=== PATIENT | female | born 1945 | race Caucasian/White ===

== ENCOUNTER 2020-05-04 13:25 | Inpatient (IN) | payer OTHER, SELFPAY ==
[~2020-05-04] VITALS: Ht 152.4 cm; Wt 54.0 kg
[2020-05-04 13:25] VITALS: BP_SYST 128
--- NOTE | 2020-05-04 13:25 | NUR ---
Patient to ER bed 01 to gown for evaluation. Side rails up. Report given to PINO CLARKE.
--- NOTE | 2020-05-04 13:35 | NUR ---
Radiology at bed side for CXR
--- NOTE | 2020-05-04 13:40 | NUR ---
unsuccessful IV placement x2 by [address] Ortega made aware.
--- NOTE | 2020-05-04 13:45 | NUR ---
Patient arrived in the ED ALOC. PT BIB BLS from home; per EMS pt hypotensive and altered. Skin pale and dry, pt placed on phototypesetting equipment monitor and pulse-ox monitor. will continue to monitor
--- NOTE | 2020-05-04 13:50 | NUR ---
ER Dr. Ortega at bedside examining patient.
[2020-05-04 15:04] LABS: BASOPHILS # (AUTO) 0.2 K/uL (0.0-0.2); BASOPHILS % (AUTO) 0.7 % (0.0-2.0); HEMATOCRIT 43.5 % (36-48); HEMOGLOBIN 14.5 g/dL (12.0-16.0); LYMPHOCYTES # (AUTO) 5.9 K/uL (1.0-5.5); MEAN CORPUSCULAR HEMOGLOBIN 30 pg (27-31); MEAN CORPUSCULAR HGB CONC 33 % (32-36); MEAN CORPUSCULAR VOLUME 89 fL (79.0-98.0); MONOCYTES % (AUTO) 4.6 % (1.7-9.3); NEUTROPHILS # (AUTO) 14.7 K/uL (1.8-7.7); NEUTROPHILS % (AUTO) 67.7 % (40.0-70.0); PLATELET COUNT (AUTO) 417 K/uL (130-430); RED BLOOD CELL COUNT(AUTO) 4.89 MIL/uL (4.2-6.2); RED CELL DISTRIBUTION WIDTH 15.6 % (9.0-15.0); WHITE BLOOD COUNT (AUTO) 21.8 K/uL (4.8-10.8)
[2020-05-04 15:05] LABS: ANION GAP 18 (5-15); CALCIUM 10.3 mg/dL (8.4-11.0); CHLORIDE 102 mmol/L (98-107); CREATININE 3.03 mg/dL (0.55-1.30); GLUCOSE 77 mg/dL (70-99); POTASSIUM 3.3 mmol/L (3.5-5.1); SODIUM SERUM 140 mmol/L (136-145); UREA NITROGEN, BLOOD 23 mg/dL (8-21)
[2020-05-04] MEDS ORDERED: HYD10 PO (15:13)
[2020-05-04] MEDS ORDERED: IRBE150T48 PO (15:13)
[2020-05-04] MEDS ORDERED: SYN75 PO (15:13)
[2020-05-04] MEDS ORDERED: HYDR20TA PO (15:13)
[2020-05-04] MEDS ORDERED: ATOR-1 PO (15:13)
--- NOTE | 2020-05-04 15:13 | NUR ---
MMedication reconciliation completed with information provided by PATIENT BOTTLES. Any prior medication reconciliation on file was reviewed and corrected.
[2020-05-04 15:21] LABS: ALANINE AMINOTRANSFERASE 23 U/L (12-78); ALBUMIN 3.5 g/dL (3.4-4.8); ASPARTATE AMINOTRANSFERASE 35 U/L (10-37)
[2020-05-04] MEDS ORDERED: LORazepam 2 MG/ML VIAL IVP ONE ×2 (15:30→17:45)
--- NOTE | 2020-05-04 15:30 | NUR ---
Lab at bedside for blood cultures
[2020-05-04 15:35] LABS: INR 1.3 (0.8-1.2); PROTHROMBIN TIME 13.7 SECS (9.5-12.5)
[2020-05-04] MEDS ORDERED: NACL 0.9% 1,000 ML IV ONE ×2 (15:45→18:45)
[2020-05-04] MEDS ORDERED: cefTRIAXone 1 GM IVPB PREMIX 50 ML IV ONE (15:45)
--- NOTE | 2020-05-04 15:45 | NUR ---
Belongings list completed.
--- NOTE | 2020-05-04 17:35 | NUR ---
# 16 FR Pleitez catheter with use of sterile technique. Immediate return of 10 cc pale yellow urine noted. Bedside drainage bag placed below level of bladder. Urine sample collected and sent to lab. Pt tolerated procedure well.
--- NOTE | 2020-05-04 18:07 | NUR ---
Patient transported to radiology via gurney for CT, accompanied by staff.
[2020-05-04] MEDS ORDERED: LEVOFLOXACIN 500 MG/D5W 100 ML IV ONE (18:30)
--- NOTE | 2020-05-04 18:54 | NUR ---
Unable to obtain urine via straight cath. MD ordered mackey placement, pt tolerated well. No urine return noted. Irrigated with NS, without urine return. Bladder scanner used to check urine amount, reads 0ML in multiple locations. MD to order alternate scan.
[2020-05-04] MEDS ORDERED: ENOXAPARIN SODIUM 30 MG/0.3 ML SYRINGE SUBCUT ONE (19:00)
--- NOTE | 2020-05-04 19:18 | NUR ---
Admit orders received from Dr. Rush, pt will be admitted to Tele under Dr. Ivey.
--- NOTE | 2020-05-04 19:24 | NUR ---
Care of patient endorsed to PINO Mar. Pt currently resting in bed, no distress noted.
[2020-05-04] MEDS ORDERED: 0.45% NACL 1,000 ML IV SCH (19:26)
--- NOTE | 2020-05-04 20:14 | NUR ---
CALLED PATIENT'S , RUBINA, TO DISCUSS CODE STATUS. STATES PATIENT IS FULL CODE. CODE STATUS FORM PLACED IN CHART.
--- NOTE | 2020-05-04 20:16 | NUR ---
Patient will be admitted to care of DR. TAYLOR. Admitted to TELEMETRY unit. Will go to room 104B. Belongings list completed. Complete and up to date summary report printed. SBAR report to be given at bedside with opportunity for questions.
--- NOTE | 2020-05-04 20:26 | NUR ---
ADMISSION NOTE Received patient from ER via gurney. Patient admitted with diagnosis of sepsis and renal failure. Patient is awake, alert, oriented X 2. Patient oriented to hospital room, call light, toileting, pain management and safety-teach back done. Patient informed that zaki will be nurse and that their room number is 104B. Personal belongings checked and Belongings List documented. Call light within reach.
[2020-05-04 20:43] VITALS: BP_SYST 134
--- NOTE | 2020-05-04 20:44 | NUR ---
CONSULTATION PAGED/CALLED Reason for Consultation: SEPSIS Person Who was Notified: DIRECTOR REGULATORY COMPLIANCE Consulting Physician: SHRUTHI Dental Equipment Technician Specialty: ID Ordering Physician: Kimberly TAYLOR
--- NOTE | 2020-05-04 20:51 | NUR ---
CONSULTATION PAGED/CALLED Reason for Consultation: ELEVATED CREATININE Person Who was Notified: CAIN Consulting Physician: ARNOLD. DOCTOR TONI IS AGENCY DEVELOPMENT MANAGER [place] Specialty: Ordering Physician: Kimberly TAYLOR
--- NOTE | 2020-05-04 21:00 | NUR ---
SPOKE TO DR. MUÑOZ UPDATED TO DR. MUÑOZ REGARDING PT STATUS, NOTIFIED BUN 23, CREATININE 3.03. DR. MUÑOZ AWARE.
--- NOTE | 2020-05-04 21:20 | NUR ---
OPENING NOTE/ LOOSE WATERY STOOL PATIENT AOX1 AND LETHARGIC. NO SIGNS OF RESPIRATORY DISTRESS AND DISCOMFORT NOTED. BREATHING EVEN AND UNLABORED. ON ROOM AIR TOLERATING WELL. SANCHEZ CATHETER, 30ML OF URINE NOTED. DR. MUÑOZ AWARE. WATERY BOWEL MOVEMENT IS NOTED. IVF INFUSING WELL. BED LOCKED AND IN LOWEST POSITION. SAFETY PRECAUTIONS IN PLACE. WILL CONTINUE TO MONITOR PATIENT.
--- NOTE | 2020-05-04 23:45 | NUR ---
RN ROUNDS/ SYLVIA CARE SYLVIA CARE DONE WITH HELP OF CLIENT CARE COORDINATOR, PATIENT ABLE TO FOLLOW ON SIMPLE COMMANDS. PATIENT HAS NO SIGNS OF RESPIRATORY DISTRESS NOTED. BREATHING EVEN AND UNLABORED. ON ROOM AIR, TOLERATING WELL. IVF INFUSING WELL. SANCHEZ MINIMAL DRAIN WAS NOTED. BED LOCKED AND IN LOWEST POSITION. SAFETY PRECAUTIONS IN PLACE. WILL CONTINUE TO MONITOR PATIENT
[2020-05-05 00:11] VITALS: BP_SYST 131
[2020-05-05] MEDS ORDERED: cefTRIAXone 1 GM IVPB PREMIX 50 ML IV SCH (00:15)
[2020-05-05] MEDS ORDERED: LORazepam 2 MG/ML VIAL IVP PRN (00:15)
[2020-05-05] MEDS ORDERED: ONDANSETRON HCL 4 MG/2 ML VIAL IVP PRN (00:15)
[2020-05-05] MEDS ORDERED: HYDROcodone/ACETAMIN 10-325 MG TAB PO PRN (00:15)
[2020-05-05] MEDS ORDERED: HYDROcodone/ACETAMIN 5-325 MG TAB (NORCO/ VICODIN) PO PRN (00:15)
[2020-05-05] MEDS ORDERED: ACETAMINOPHEN 325 MG TABLET PO PRN (00:15)
[2020-05-05] MEDS ORDERED: NALOXONE HCL 0.4 MG/ML AMP (NARCAN) IVP PRN ×2 (00:15)
[2020-05-05 00:38] LABS: BILIRUBIN,URINE NEGATIVE (NEGATIVE); BLOOD, URINE 3+ (NEGATIVE); COLOR,URINE YELLOW (YELLOW); GLUCOSE,URINE NEGATIVE (NEGATIVE); KETONES,URINE NEGATIVE (NEGATIVE); LEUKOCYTE ESTERASE ,URINE 3+ (NEGATIVE); NITRITE, URINE NEGATIVE (NEGATIVE); PROTEIN URINE 2+ (NEGATIVE); UROBILINOGEN,URINE 0.2 (0.2-1.0)
[2020-05-05 00:41] LABS: CLARITY/URINE HAZY (CLEAR)
[2020-05-05] MEDS: D5/0.45 NS 1,000 ML IV SCH ×3 (00:51→22:07)
[2020-05-05 00:56] LABS: BACTERIA,URINE MANY /HPF (None Seen); RBC,URINE 20-50 /HPF (0-3); WBC,URINE 20-50 /HPF (0-3)
[2020-05-05 00:57] LABS: URINE AMORPHOUS URATE 2+ /HPF (None Seen)
--- NOTE | 2020-05-05 02:27 | NUR ---
RN ROUNDS PATIENT ASLEEP AT THIS TIME. NO SIGNS OF RESPIRATORY DISTRESS AND DISCOMFORT NOTED. BREATHING EVEN AND UNLABORED. IVF INFUSING WELL. SANCHEZ CATHETER, MINIMAL DRAIN WAS NOTED. CALL LIGHT WITHIN REACH. SAFETY PRECAUTIONS IN PLACE. WILL CONTINUE TO MONITOR PATIENT
[2020-05-05 06:13] LABS: BASOPHILS # (AUTO) 0.1 K/uL (0.0-0.2); BASOPHILS % (AUTO) 0.4 % (0.0-2.0); EOSINOPHILS # (AUTO) 0.2 K/uL (0.0-0.4); EOSINOPHILS % (AUTO) 1.3 % (0.0-4.0); HEMATOCRIT 35.2 % (36-48); HEMOGLOBIN 11.8 g/dL (12.0-16.0); LYMPHOCYTES # (AUTO) 2.3 K/uL (1.0-5.5); LYMPHOCYTES % (AUTO) 16.6 % (20.5-51.5); MEAN CORPUSCULAR HEMOGLOBIN 30 pg (27-31); MEAN CORPUSCULAR HGB CONC 33 % (32-36); MEAN CORPUSCULAR VOLUME 90 fL (79.0-98.0); NEUTROPHILS # (AUTO) 10.2 K/uL (1.8-7.7); NEUTROPHILS % (AUTO) 74.7 % (40.0-70.0); PLATELET COUNT (AUTO) 321 K/uL (130-430); RED BLOOD CELL COUNT(AUTO) 3.89 MIL/uL (4.2-6.2); RED CELL DISTRIBUTION WIDTH 15.9 % (9.0-15.0); WHITE BLOOD COUNT (AUTO) 13.7 K/uL (4.8-10.8)
[2020-05-05] MEDS: LEVOTHYROXINE SODIUM 0.075 MG TABLET PO SCH (06:14)
[2020-05-05 06:20] LABS: ANION GAP 12 (5-15); CALCIUM 7.9 mg/dL (8.4-11.0); CHLORIDE 109 mmol/L (98-107); CREATININE 2.85 mg/dL (0.55-1.30); GLUCOSE 120 mg/dL (70-99); PHOSPHORUS 4.4 mg/dL (2.7-4.5); POTASSIUM 3.7 mmol/L (3.5-5.1); SODIUM SERUM 140 mmol/L (136-145); UREA NITROGEN, BLOOD 25 mg/dL (8-21)
--- NOTE | 2020-05-05 06:39 | NUR ---
CLOSING NOTE PATIENT WAKES UP WHEN DUE MEDICATION SYNTHROID WAS GIVEN, ABLE TO FOLLOW ON SIMPLE COMMANDS. PATIENT WAS EDUCATED ON MEDICATION THAT WAS TAKEN FOR ITS PURPOSE, SIDE EFFECT AND BENEFITS. PATIENT ABLE TO VERBALIZED UNDERSTANDING. NO SIGNS FO RESPIRATORY DISTRESS AND DISCOMFORT NOTED. BREATHING EVEN AND UNLABORED. ON ROOM AIR, TOLERATING WELL. IVF INFUSING WELL. BED LOCKED AND IN LOWEST POSITION. SAFETY PRECAUTIONS IN PLACE. ALL NEEDS MET THROUGHOUT THE SHIFT. WILL CONTINUE TO MONITOR PATIENT UNTIL ENDORSE TO ONCOMING SHIFT NURSE FOR CONTINUITY OF CARE.
--- NOTE | 2020-05-05 07:10 | NUR ---
OPENING NOTE RECEIVED SBAR FROM NIGHT RN, PATIENT IN BED RESPIRATIONS EVEN, NON LABORED, BED IN LOW AND LOCKED POSITION, CALL LIGHT WITHIN REACH, BED ALARM ON
[2020-05-05 08:00] VITALS: BP_SYST 105
--- NOTE | 2020-05-05 08:00 | NUR ---
NURSE NOTE OBTAINED VS, PATIENT IN BED, RESPIRATIONS EVEN, NON LABORED, BED IN LOW AND LOCKED POSITION, CALL LIGHT WITHIN REACH, BED ALARM ON
--- NOTE | 2020-05-05 08:08 | NUR ---
Nutrition Update Reese scale 17 noted. Pt admitted for sepsis, renal failure Diet: Regular Diet BMI: 22.7 kg/m2 RD to follow per nutrition care standards.
[2020-05-05 08:25] LABS: C-REACTIVE PROTEIN QUANT 44.1 mg/dL (0-0.5)
[2020-05-05] MEDS: ATORVASTATIN 20 MG TABLET PO SCH (08:26)
[2020-05-05] MEDS: HYDROCORTISONE 10 MG TABLET (CORTEF) PO SCH ×2 (08:26→22:07)
[2020-05-05 08:46] LABS: ERYTHROCYTE SEDIMENTATION RATE 63 MM/HR (0-20)
[2020-05-05] MEDS: cefTRIAXone 1 GM IVPB PREMIX 50 ML IV SCH (09:14)
--- NOTE | 2020-05-05 10:00 | NUR ---
NURSE NOTE REPOSITIONED PATIENT, IN BED, RESPIRATIONS EVEN, NON LABORED, BED IN LOW AND LOCKED POSITION, CALL LIGHT WITHIN REACH, BED ALARM ON, PATIENT DENIES ANY PAIN OR DISCOMFORT
[2020-05-05 10:14] LABS: URINE SODIUM, RANDOM 18 mmol/L (40-220)
[2020-05-05 11:54] VITALS: BP_SYST 120
--- NOTE | 2020-05-05 12:00 | NUR ---
NURSE NOTE REPOSITIONED PATIENT, RESPIRATIONS EVEN, NON LABORED, BED IN LOW AND LOCKED POSITION, CALL LIGHT WITHIN REACH, BED ALARM ON
--- NOTE | 2020-05-05 14:00 | NUR ---
nurse note repositioned patient, mackey is not draining, bladder scan shows 20ml, of urine, mackey was out of patient. MACKEY CATH: # 16FR Mackey catheter with 12 cc bulb inserted with use of sterile technique. Bulb inflated with 12 cc sterile water. Bedside drainage bag placed below level of bladder. Pt tolerated procedure well.
[2020-05-05] MEDS: metroNIDAZOLE 250 mg/NS 50 ML IV SCH ×2 (14:56→22:08)
--- NOTE | 2020-05-05 16:00 | NUR ---
nurse note repositioned patient, bed in low and locked position, call light within reach, bed alarm on, patient denies any pain or discomfort,
[2020-05-05 16:12] VITALS: BP_SYST 124
--- NOTE | 2020-05-05 18:00 | NUR ---
nurse note repositioned patient, patient denies any pain or discomfort, bed in low and locked position, call light within reach, IVF's running as directed
--- NOTE | 2020-05-05 19:15 | NUR ---
closing note provided bedside SBAR to night RN, patient in bed, respirations even, non labored, bed in low and locked position, call light within reach, bed alarm on
--- NOTE | 2020-05-05 19:27 | NUR ---
OPENING NOTE PATIENT AOX1, FOLLOW ON SIMPLE COMMANDS. NO SIGNS OF RESPIRATORY DISTRESS AND DISCOMFORT NOTED. BREATHING EVEN AND UNLABORED. ON ROOM AIR TOLERATING WELL. SANCHEZ CATHETER, DRAINING WELL BY GRAVITY. IVF INFUSING WELL. BED LOCKED AND IN LOWEST POSITION. SAFETY PRECAUTIONS IN PLACE. WILL CONTINUE TO MONITOR PATIENT.
[2020-05-05 20:00] VITALS: BP_SYST 105
[2020-05-06] VITALS: BP_SYST 114
[2020-05-06] MEDS: D5/0.45 NS 1,000 ML IV SCH ×2 (05:27→13:18)
[2020-05-06] MEDS: metroNIDAZOLE 250 mg/NS 50 ML IV SCH ×2 (06:24→14:54)
[2020-05-06] MEDS: LEVOTHYROXINE SODIUM 0.075 MG TABLET PO SCH (06:24)
[2020-05-06 06:38] LABS: BASOPHILS % (AUTO) 0.2 % (0.0-2.0); EOSINOPHILS % (AUTO) 0.1 % (0.0-4.0); HEMATOCRIT 29.4 % (36-48); LYMPHOCYTES # (AUTO) 1.2 K/uL (1.0-5.5); LYMPHOCYTES % (AUTO) 10.9 % (20.5-51.5); MEAN CORPUSCULAR HEMOGLOBIN 30 pg (27-31); MEAN CORPUSCULAR HGB CONC 34 % (32-36); MEAN CORPUSCULAR VOLUME 89 fL (79.0-98.0); MONOCYTES # (AUTO) 0.3 K/uL (0.0-1.0); MONOCYTES % (AUTO) 3.2 % (1.7-9.3); NEUTROPHILS # (AUTO) 9.2 K/uL (1.8-7.7); NEUTROPHILS % (AUTO) 85.6 % (40.0-70.0); PLATELET COUNT (AUTO) 266 K/uL (130-430); RED CELL DISTRIBUTION WIDTH 15.8 % (9.0-15.0); WHITE BLOOD COUNT (AUTO) 10.8 K/uL (4.8-10.8)
[2020-05-06 06:52] LABS: ALANINE AMINOTRANSFERASE 18 U/L (12-78); ALBUMIN 2.1 g/dL (3.4-4.8); ANION GAP 12 (5-15); ASPARTATE AMINOTRANSFERASE 20 U/L (10-37); CALCIUM 7.7 mg/dL (8.4-11.0); CHLORIDE 109 mmol/L (98-107); CREATININE 1.79 mg/dL (0.55-1.30); GLUCOSE 166 mg/dL (70-99); PHOSPHORUS 2.5 mg/dL (2.7-4.5); POTASSIUM 3.4 mmol/L (3.5-5.1); SODIUM SERUM 140 mmol/L (136-145); TOTAL BILIRUBIN 0.7 mg/dL (0.0-1.0); UREA NITROGEN, BLOOD 22 mg/dL (8-21)
--- NOTE | 2020-05-06 07:15 | NUR ---
opening note received sbar from night rn, patient in bed, respirations even, non labored, bed in low and locked position, call light within reach, bed alarm on
--- NOTE | 2020-05-06 07:40 | NUR ---
ROUNDS DR LEVY BEDSIDE EXAMINING PATIENT
--- NOTE | 2020-05-06 07:41 | NUR ---
CLOSING NOTE/ DR. MICHELLE MARTINEZ ROUNDS AND UPDATED WITH PATIENT STATUS. PATIENT WAKES UP WHEN DUE MEDICATION SYNTHROID WAS GIVEN, ABLE TO FOLLOW ON SIMPLE COMMANDS. PATIENT WAS EDUCATED ON MEDICATION THAT WAS TAKEN FOR ITS PURPOSE, SIDE EFFECT AND BENEFITS. PATIENT ABLE TO VERBALIZED UNDERSTANDING. NO SIGNS FO RESPIRATORY DISTRESS AND DISCOMFORT NOTED. BREATHING EVEN AND UNLABORED. ON ROOM AIR, TOLERATING WELL. IVF INFUSING WELL. BED LOCKED AND IN LOWEST POSITION. SAFETY PRECAUTIONS IN PLACE. ALL NEEDS MET THROUGHOUT THE SHIFT. ENDORSE TO PINO HU FOR CONTINUITY OF CARE.
[2020-05-06] MEDS: HYDROCORTISONE 10 MG TABLET (CORTEF) PO SCH (08:15)
[2020-05-06] MEDS: ATORVASTATIN 20 MG TABLET PO SCH (08:15)
[2020-05-06] MEDS: cefTRIAXone 1 GM IVPB PREMIX 50 ML IV SCH (08:15)
--- NOTE | 2020-05-06 08:15 | NUR ---
nurse note obtained vs, provided medications, patient alert and oriented, x 3 respirations even, non labored, bed in low and locked position, call light within reach, bed alarm on, mackey draining by gravity, ivf's running as ordered. Patient denies any pain or discomfort
--- NOTE | 2020-05-06 10:00 | NUR ---
nurse note patient in bed, respirations even, non labored, bed in low and locked position call light within reach, bed alarm on, patient denies any pain or discomfort
--- NOTE | 2020-05-06 12:00 | NUR ---
nurse note patient in bed, respirations even non labored, denies any pain or discomfort
--- NOTE | 2020-05-06 12:15 | NUR ---
Dietitian Recommendations *Recommend continue Regular Diet *Recommend add Glucerna TID to provide additional 660 kcal, 30g protein to promote PO intake and for glycemic control *Recommend Banatrol TID to help w/ diarrhea. *Encourage increase PO intake during meal times. Please see Nutrition Assessment for details. TITUS TRIVEDI Addendum: 05/06/20 at [address] CORRECTION: Dietitian Recommendations *Recommend continue Regular Diet *Recommend add Glucerna TID to provide additional 660 kcal, 30g protein to promote PO intake and for glycemic control *Encourage increase PO intake during meal times. Please see Nutrition Assessment for details. TITUS TRIVEDI
[2020-05-06 12:32] VITALS: BP_SYST 128
--- NOTE | 2020-05-06 14:00 | NUR ---
nurse note patient in bed, respirations even, non labored bed in low and locked position
--- NOTE | 2020-05-06 15:00 | NUR ---
nurse note administered medication, assisted patient call family, bed in low and locked position, call light within reach
--- NOTE | 2020-05-06 17:00 | NUR ---
nurse note patient in bed, eyes closed, bed in low and locked position, call light within reach, no distress noted, bed alarm on
[2020-05-06 17:32] VITALS: BP_SYST 140
--- NOTE | 2020-05-06 18:35 | NUR ---
nurse note patient in bed, eating dinner, bed in low and locked position, call light within reach, bed alarm on
--- NOTE | 2020-05-06 19:18 | NUR ---
closing note provided sbar to night rn, patient in bed, respirations even, non labored, bed in low and locked position, call light within reach, mackey draining by gravity, ivf's running as ordered. endorsed care to night rn
[2020-05-07] MEDS: metroNIDAZOLE 250 mg/NS 50 ML IV SCH ×3 (06:27→22:16)
[2020-05-07] MEDS: D5/0.45 NS 1,000 ML IV SCH ×2 (06:27→12:31)
[2020-05-07] MEDS: LEVOTHYROXINE SODIUM 0.075 MG TABLET PO SCH (06:27)
--- NOTE | 2020-05-07 06:30 | NUR ---
pt.assessed.pt.presents quiescent affect;calm,resting.i have administered flagyl;abx;ivpb,0600a dose,synthroid;0700a dose,changed the iv fluids.no c/o pain,nausea.iv access intact;patent.mackey cath intact;patent urine content present. no c/o pain,nausea.pt.requested fresh water.i have provided the water.pt.assessed for cleanliness.pt.repositioned.call light/telephone placed w/in access of the pt.pt.presents renal failure.i have weighed the pt.
[2020-05-07 07:24] LABS: ANION GAP 10 (5-15); CALCIUM 7.7 mg/dL (8.4-11.0); CHLORIDE 112 mmol/L (98-107); GLUCOSE 102 mg/dL (70-99); POTASSIUM 3.1 mmol/L (3.5-5.1); SODIUM SERUM 143 mmol/L (136-145); UREA NITROGEN, BLOOD 15 mg/dL (8-21)
[2020-05-07 08:00] VITALS: BP_SYST 165
--- NOTE | 2020-05-07 08:00 | NUR ---
PATIENT AOX1, PLEASANT. NO S/S OF RESP DISTRESS, NO COMPLAINTS OF PAIN 0/10. PATIENT DID STATE THAT SHE DOES NOT EAT WELL HERE BECAUSE DOES NOT LIKE THE FOOD HERE BUT AT HOME EATS BETTER. PATIENT TOOK MORNING MEDS, ONE PILL AT A TIME. ALL NEEDS MET FOR NOW.
[2020-05-07] MEDS: HYDROCORTISONE 10 MG TABLET (CORTEF) PO SCH ×2 (08:46→20:15)
[2020-05-07] MEDS: ATORVASTATIN 20 MG TABLET PO SCH (08:48)
[2020-05-07] MEDS: cefTRIAXone 1 GM IVPB PREMIX 50 ML IV SCH (08:49)
[2020-05-07 09:10] VITALS: BP_SYST 165
--- NOTE | 2020-05-07 12:30 | NUR ---
PATIENT IS PLEASANT BUT STILL AOX1. PATIENT HAD A LITTLE MORE OF HER LUNCH 40%. VS STABLE, WAITING FOR PT TO COME SEE PATIENT.
[2020-05-07 12:48] VITALS: BP_SYST 159
--- NOTE | 2020-05-07 14:00 | NUR ---
PATIENT F/C WAS REMOVED
--- NOTE | 2020-05-07 14:39 | NUR ---
DC Planning: Updated POC to spouse/Robin with tentative discharge for tomorrow. The discharge with HH follow up and is pending Urine culture and PT eval. Robin agrees with any in-network HH follow up possible for IV abx and PT.
[2020-05-07 16:44] VITALS: BP_SYST 163
[2020-05-07] MEDS ORDERED: POTASSIUM CHLORIDE 40 MEQ in NS 250 ML IV ONE (17:00)
--- NOTE | 2020-05-07 17:10 | NUR ---
P.T. NOTES P.T. EVAL COMPLETED; REFER TO EVAL FOR DETAILS.
--- NOTE | 2020-05-07 17:30 | NUR ---
PATIENT IV WAS INFILTRATED AND HAD TO BE REMOVED. PATIENT WAS POKED MULTIPLE TIMES BY DIFFERENT NURSES AND WAS A HARD STICK. UNABLE TO SUCCEED IN IV. PATIENT NEEDS IV ACCESS FOR POTASSIUM AND ANTIBIOTICS. CALLED DR BARRETT TO INFORM HIM. DR JEWELL ORDERED PO POTASSIUM AND PICC LINE.
--- NOTE | 2020-05-07 17:36 | NUR ---
COO DR BARRETT WAS CALLED RE: POTASSIUM ORDER AND TO INFORM MD THAT THERE IS NO IV ACCESS.. SPOKE TO DELFINA.
[2020-05-07] MEDS ORDERED: POTASSIUM CHLORIDE 20 MEQ TAB.PRT.SR PO ONE (17:45)
--- NOTE | 2020-05-07 19:40 | NUR ---
OPENING NOTE patient is resting in bed. alert to name and but unable to answer where she is at. educated [employer] director light system and plan of care, patient verbalized understanding. patient is tolerating well on room air with no signs of distress at this time. no other needs addressed at this time. fall/safety precautions in place. patient received a PICC line and CXR is still pending to confirm placement.
[2020-05-07 20:02] VITALS: BP_SYST 161
--- NOTE | 2020-05-07 22:30 | NUR ---
PATIENT AMBULATED TO RESTROOM patient got of bed without calling for assistance, she said she wanted to go to the restroom. patient was able to ambulate to the bathroom with standby assist. patient stated that she was able to void without any difficulties. PICC placement was confirmed and okay to be used. re-enforced educated to patient to use the call light to ask for assistance to the restroom, patient verbalized understanding. no other needs addressed at this time. fall/safety precautions in place.
[2020-05-08] VITALS: BP_SYST 164
--- NOTE | 2020-05-08 00:12 | NUR ---
PATIENT RESTING IN BED eyes closed, breathing easy and nonlabored. no signs of distress at this time. no needs addressed at this time. fall/safety precautions in place.
[2020-05-08] MEDS ORDERED: IRBESARTAN 150 MG TABLET (AVAPRO) PO SCH (00:30)
--- NOTE | 2020-05-08 00:36 | NUR ---
TALKED TO DR TAYLOR who is tool honing machine set up operator for Dr Ivey for tonight. I informed him about the patient's SBP being greater than 160. I informed him that the patient has a home medication of irbesartan that wasn't continued. Dr Taylor okayed for it to be continued and to let pharmacy substitute it if needed.
--- NOTE | 2020-05-08 02:08 | NUR ---
ROUND patient is resting in bed, eyes closed breathing easy and nonlabored. no signs of distress at this time, tolerating well on room air. no needs addressed at this time. fall/safety precautions in place.
--- NOTE | 2020-05-08 04:00 | NUR ---
PATIENT MOVED TO BED A patient is frequently getting up to go to the restroom. she was moved to A bed so that she can be closer. patient ambulates steady to the bathroom independently. no other needs at this time. no signs of distress at this time. fall/safety precautions in place.
[2020-05-08] MEDS: D5/0.45 NS 1,000 ML IV SCH (04:20)
[2020-05-08 05:44] VITALS: BP_SYST 163
[2020-05-08] MEDS: LEVOTHYROXINE SODIUM 0.075 MG TABLET PO SCH (06:19)
[2020-05-08] MEDS: metroNIDAZOLE 250 mg/NS 50 ML IV SCH (06:19)
[2020-05-08 06:23] LABS: ANION GAP 12 (5-15); CALCIUM 7.7 mg/dL (8.4-11.0); CHLORIDE 112 mmol/L (98-107); CREATININE 0.95 mg/dL (0.55-1.30); GLUCOSE 81 mg/dL (70-99); POTASSIUM 3.2 mmol/L (3.5-5.1); SODIUM SERUM 144 mmol/L (136-145); UREA NITROGEN, BLOOD 12 mg/dL (8-21)
--- NOTE | 2020-05-08 07:25 | NUR ---
Received patient and endorsed report from [facility] shift nurse. Patient in bed awake and alert in bed with side rails x 3 up, call light with in reach. Denies pain.
[2020-05-08 08:00] VITALS: BP_SYST 164
[2020-05-08] MEDS ORDERED: LOSARTAN POTASSIUM 25 MG TABLET PO SCH (09:00)
--- NOTE | 2020-05-08 09:30 | NUR ---
MD Ivey at bedside assessing patient, stated will discharge patient home today.
[2020-05-08] MEDS: HYDROCORTISONE 10 MG TABLET (CORTEF) PO SCH (09:50)
[2020-05-08] MEDS: ATORVASTATIN 20 MG TABLET PO SCH (09:51)
[2020-05-08] MEDS: cefTRIAXone 1 GM IVPB PREMIX 50 ML IV SCH (09:51)
--- NOTE | 2020-05-08 10:30 | NUR ---
Patient participated with physical therapy and walked more than 30 feet around nursing station with supervision.
[2020-05-08] MEDS ORDERED: LEVO500T89 PO (10:41)
--- NOTE | 2020-05-08 12:08 | NUR ---
DC Planning: requested MELISSA [facility] [place] # [phone] to arrange HH and PT safety eval and FWW. She said , " will notify Robin/pt's spouse with the HH agency name and schedule for visiting." >> The referral package faxed to # .
[2020-05-08 12:46] VITALS: BP_SYST 149
--- NOTE | 2020-05-08 13:00 | NUR ---
called and requested for update. Update given as requested and informed of patient's discharge order. Stated patient should be ready to leave at 1400.
--- NOTE | 2020-05-08 13:12 | NUR ---
Asked patient if she feels she will need a front wheel walker, physical therapy, or home therapy, patient declined services stated able to walk fine.
--- NOTE | 2020-05-08 13:50 | NUR ---
Removed PICC line and placed sterile dressing, patient tolerated procedure WNL. No drainage, redness, or swelling noted at site.
[2020-05-08] MEDS ORDERED: POTASSIUM CHLORIDE 20 MEQ TAB.PRT.SR PO ONE (14:30)
--- NOTE | 2020-05-08 14:45 | NUR ---
Patient left facility with in private automobile at 1430. Patient was transferred via wheelchair to car. Patient educated on discharge summary and instructions with verbal feedback received back from patient. Patient signed acknowledgement of receiving discharge summary and instructions with copy given to patient. Personal belongings verified with patient as present. Instructed patient to go to PCP as soon as she can.
--- NOTE | 2020-05-08 19:50 | NUR ---
Home medications left at pharmacy, called and left message to pick up driver medications tomorrow from 8 am before closing at 1800. Will endorse to current charge nurse.
== END 2020-05-08 14:30 | disposition home health service (06) | DRG 871 ==
LOC: SED 13:25 → STU 19:15
PROVIDERS: ADMIT Internal Medicine Hospice and Palliative Medicine; ATTEND Internal Medicine Hospice and Palliative Medicine
DX: A41.9 Sepsis, unspecified organism (principal); G93.41 Metabolic encephalopathy; N39.0 Urinary tract infection, site not specified; E87.2 Acidosis; N17.9 Acute kidney failure, unspecified; I10 Essential (primary) hypertension; Z20.828 Contact with and (suspected) exposure to other viral communicable diseases; E03.9 Hypothyroidism, unspecified; E78.5 Hyperlipidemia, unspecified; E87.6 Hypokalemia; R19.7 Diarrhea, unspecified
CPT/HCPCS: 36415; 36600; 70450-TC; 71045; 76376; 80048; 80053; 81000-TC; 82570-TC; 82803-TC; 83605; 83735-TC; 84100-TC; 84302-TC; 84484; 85025; 85610-TC; 85651-TC; 85730-TC; 86140; 87040-TC; 87086; 87230-TC; 93005; 96365; 96367; 96372; 96375; 96376; 97112-GP; 97116-GP; 99291; G0378; J0696; J1650; J1956; J2060; J3480; J3490; J7050